=== PATIENT | male | born 1995 | race Two or more races ===

== ENCOUNTER 2017-02-28 22:22 | Emergency (ER) | payer SELFPAY ==
[~2017-02-28 22:22] MED LIST: CIPR500T94 PO; HYDR-971 PO
[2017-02-28 22:35] VITALS: BP 133/80
--- NOTE | 2017-02-28 22:40 | PHYS DOC ---
Past Medical History Past Medical History: No Pertinent History Past Surgical History: No Surgical History Alcohol Use: None Drug Use: None Adult General Chief Complaint Chief Complaint: SORE THROAT HPI HPI Patient is a 21 year old male presents to the emergency department with a 2 day history of sore throat with fever. He states he's had a positive strep exposure. He reports no drooling but does complain of pain with swallowing. Review of Systems Review of Systems Constitutional: Fever [] Eyes: Denies change in visual acuity, redness, or eye pain [] HENT: Sore throat, voice change Respiratory: Denies cough or shortness of breath [] Cardiovascular: No additional information not addressed in HPI [] GI: Denies abdominal pain, nausea, vomiting, bloody stools or diarrhea [] : Denies dysuria or hematuria [] Musculoskeletal: Denies back pain or joint pain [] Integument: Denies rash or skin lesions [] Neurologic: Denies headache, focal weakness or sensory changes [] Endocrine: Denies polyuria or polydipsia [] Allergies Allergies Allergies Coded Allergies Type Severity Reaction Last Updated Verified No Known Drug Allergies 01/31/15 No Physical Exam Physical Exam Constitutional: Well developed, well nourished, no acute distress, non-toxic appearance., Muffled voice [] HENT: Normocephalic, atraumatic, bilateral external ears normal, posterior pharynx erythematous with exudate, uvula midline, nose normal. [] Eyes: PERRLA, EOMI, conjunctiva normal, no discharge. [] Neck: Normal range of motion, no tenderness, supple, anterior cervical lymphadenopathy, no meningeal signs Cardiovascular:Heart rate regular rhythm, no murmur [] Lungs & Thorax: Bilateral breath sounds clear to auscultation [] Skin: Warm, dry, no erythema, no rash. [] Back: No tenderness, no CVA tenderness. [] EKG EKG [] Radiology/Procedures Radiology/Procedures [] Course & Med Decision Making Course & Med Decision Making Elected to treat this patient based on clinical symptoms including strep exposure, muffled voice, erythematous posterior pharynx, anterior cervical lymphadenopathy, and fever. Bicillin LA 1.2 milliunits IM in the emergency department. Pertinent Labs and Imaging studies reviewed. (See chart for details) [] Dragon Disclaimer Dragon Disclaimer This electronic medical record was generated, in whole or in part, using a voice recognition dictation system. Departure Departure Impression: Primary Impression: Pharyngitis Disposition: 01 HOME, SELF-CARE Condition: STABLE Referrals: NO PCP (PCP) [facility] Patient Instructions: Strep Throat Additional Instructions: Magic mouthwash, use as directed. Salt gargles. Tylenol and/or Motrin over-the- counter as labeled and is indicated for symptom management. Return to the emergency department for worsening of symptoms new symptoms or if changing current condition. Problem Qualifiers Primary Impression: Pharyngitis Pharyngitis/tonsillitis etiology: unspecified etiology Qualified Codes: J02.9 - Acute pharyngitis, unspecified BETO SARMIENTO [employer] Feb 28, 2017 22:40
[2017-02-28] MEDS ORDERED: LIDO:MAALOX:BENADRYL 1:1:1 180 ML BOTTLE. PO PRN (22:45)
[2017-02-28] MEDS ORDERED: PENICILLIN G BENZATHINE LA 1,200,000 UNIT/2 ML DISP.SYRIN. IM ONE (22:45)
== END 2017-02-28 23:23 | disposition home or self-care (01) ==
LOC: ER 22:22
DX: J02.9 Acute pharyngitis, unspecified (principal)
CPT/HCPCS: 96372; 99283; J0561